=== PATIENT | female | born 1950 | race Caucasian/White ===

== ENCOUNTER 2024-12-17 16:29 | Emergency (ER) | payer MEDICARE, SELFPAY ==
[2024-12-17] VITALS (39 sets, daily range): BP systolic 136–236; BP diastolic 79–102; PULSE 99–113; RESP 20–38; O2SAT 93–98; BMI 22.8
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
--- NOTE | 2024-12-17 17:00 | EKG_ITS ---
[facility] [id number] [place] [id number] Test Date: 2024-12-17 Pat Name: Olivia Wright Department: Room: Gender: Female Pick Up Driver: : 1950 Requested By: Order Number: [id number] Reading MD: Thomas Cleaning MD Measurements Intervals [place] Rate: 105 P: 78 MI: 150 QRS: 76 QRSD: 74 T: -16 QT: 334 QTc: 441 Interpretive Statements Sinus tachycardia Septal infarct , age undetermined ST & T wave abnormality, consider inferior ischemia NO SIGNIFICANT CHANGE FROM PRIOR TRACING Electronically Signed On 12-18-2024 7:46:22 PDT by Thomas Cleaning MD
--- NOTE | 2024-12-17 17:07 | PC.NURSE ---
This DIRECTOR OF REHABILITATIVE SERVICES performed kayley care and placed a purewick at 1650.
[2024-12-17] MEDS: ALBUTEROL 2.5 MG/3 ML NEB (ADULT) INH (17:10)
[2024-12-17] MEDS: BACITRACIN OINT 0.9 GM PCKT 1 APPLIC TOP (18:56)
[2024-12-17] MEDS: LACTATED RINGERS 1,000 ML 1000 ML IV (18:56)
[2024-12-17 19:29] LABS: Add Manual Diff / Slide Review NO; Hematocrit 38.9 % (36-46); Hemoglobin 13.2 g/dL (12.0-16.0); Lymphocytes Absolute Auto 1100 /uL (1100-4500); Mean Corpuscular HGB Conc 33.9 % (30-36); Mean Corpuscular Hemoglobin 29.8 PG (26-34); Mean Corpuscular Volume 88.1 fL (80-100); Platelet Count 75 X10^3/uL (150-400)
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
[2024-12-17 19:35] LABS: Alanine Aminotransferase 17 IU/L (<35); Albumin 4.5 g/dL (3.5-5.0); Albumin Globulin Ratio 1.0 (1.0-2.8); Alkaline Phosphatase 125 U/L (38-126); Blood Urea Nitrogen 33 mg/dL (7-17); Calcium 9.6 mg/dL (8.4-10.2); Carbon Dioxide 29 mmol/L (22-32); Chloride 99 mmol/L (98-107); Creatine Kinase 40 U/L (30-135); Estimated Glomerular Filt Rate 54 mL/min (>60); Globulin 4.4 g/dL (1.7-4.1); Glucose 275 mg/dL (70-99); HEMOLYSIS < 15 (0-50); Potassium 4.9 mmol/L (3.4-5.1); Sodium 139 mmol/L (137-145); Total Protein 8.9 g/dL (6.3-8.2)
[2024-12-17 19:47] LABS: Troponin I 0.013 ng/mL (0.01-0.034)
[2024-12-17] MEDS: ALBUTEROL HFA PREPACK 1 BOX MISC (20:17)
[2024-12-17] MEDS: ACETAMINOPHEN 325 MG TABLET 650 MG PO (23:11)
[2024-12-18] VITALS (29 sets, daily range): BP systolic 110–210; BP diastolic 53–117; PULSE 68–95; RESP 14–29; O2SAT 92–100
[2024-12-18] MEDS: TET,DIPH,PERTUSS(ACELL),VAC/PF 0.5 ML SYRINGE IM (01:14)
--- NOTE | 2024-12-18 08:54 | PC.NURSE ---
Called RT to request an update on setting up patient home oxygen.
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
[2024-12-18] MEDS: BACITRACIN OINT 0.9 GM PCKT 1 APPLIC TOP (11:47)
== END 2024-12-18 12:05 | disposition home or self-care (01) ==
PROVIDERS: Emergency Medicine; Emergency Provider Emergency Medicine
DX: T21.23XA Burn of second degree of upper back, initial encounter (principal); T22.212A Burn of second degree of left forearm, initial encounter; T22.211A Burn of second degree of right forearm, initial encounter; T31.0 Burns involving less than 10% of body surface; J44.9 Chronic obstructive pulmonary disease, unspecified; T59.811A Toxic effect of smoke, accidental (unintentional), initial encounter; X00.0XXA Exposure to flames in uncontrolled fire in building or structure, initial encounter; Z23 Encounter for immunization; Z99.81 Dependence on supplemental oxygen; Z87.891 Personal history of nicotine dependence
CPT/HCPCS: 71045; 80053; 82550; 84484; 85025; 90471; 93005; 93010; 94640; 96360; 96361; 99285; 90715; J7613

== ENCOUNTER 2025-04-11 22:42 | Inpatient (IN) | payer MEDICARE, SELFPAY ==
[2025-04-11 22:46] VITALS: BP 82/49; PULSE 104; RESP 24; TEMP 36.2; O2SAT 95; BMI 20.9
[2025-04-11 22:59] VITALS: PULSE 103; RESP 22
[2025-04-11 23:00] VITALS: PULSE 119; RESP 21; O2SAT 99
[2025-04-11 23:01] VITALS: BP 103/59; PULSE 119; RESP 20; O2SAT 99
--- NOTE | 2025-04-11 23:09 | EKG_ITS ---
[facility] [address] [place] [address] Test Date: 2025-04-11 Pat Name: Olivia Wright Department: [facility] Room: Gender: Female Answering Service Operator: : 1950 Requested By: Order Number: [id number] Reading MD: Thomas Cleaning MD Measurements Intervals [place] Rate: 101 P: 78 CA: 142 QRS: 78 QRSD: 90 T: -63 QT: 346 QTc: 448 Interpretive Statements Sinus tachycardia Septal infarct , age undetermined Marked ST abnormality, possible inferior subendocardial injury Electronically Signed On 04-21-2025 9:01:03 PST by Thomas Cleaning MD
[2025-04-11 23:18] LABS: Add Manual Diff / Slide Review NO; Hematocrit 36.0 % (36-46); Hemoglobin 12.3 g/dL (12.0-16.0); Lymphocytes Absolute Auto 600 /uL (1100-4500); Mean Corpuscular HGB Conc 34.1 % (30-36); Mean Corpuscular Hemoglobin 29.6 PG (26-34); Mean Corpuscular Volume 86.8 fL (80-100); Platelet Count 129 X10^3/uL (150-400)
--- NOTE | 2025-04-11 23:28 | ED.NAVMDI ---
HPI - Nausea/Vomiting/Diarrhea General Chief complaint: Nausea/Vomiting/Diarrhea Stated complaint: weakness/ Lt arm pain Time Seen by Provider: 04/11/25 23:05 Source: patient and family Mode of arrival: Wheelchair History of Present Illness HPI Narrative: 74-year-old female with a history of COPD and diabetes comes in with confusion and more diarrhea that started this afternoon. Currently the patient is back at her baseline but comes in hypotensive and tachycardic. She is weaker than usual as well. She does not complain of any chest pain but does have some left upper extremity arm pain and suprapubic pain. Related Data Home Medications ?Medication ?Instructions ?Recorded ?Confirmed cholecalciferol (vitamin D3) 50 50 mcg PO QDAY ##0 07/08/17 12/17/24 mcg (2,000 unit) capsule (Vitamin D3) lisinopril 20 mg tablet 20 mg PO QDAY ##0 07/08/17 12/17/24 albuterol sulfate 90 mcg/actuation 1 puff inhalation Q4HP PRN 12/17/24 12/17/24 aerosol inhaler (Ventolin HFA) shortness of breath or wheezing fluticasone 250 mcg-salmeterol 50 1 ea inhalation BID 12/17/24 12/17/24 mcg/dose blistr powdr for inhalation garlic 1,000 mg capsule 1,000 mg PO DAILY 12/17/24 12/17/24 montelukast 10 mg tablet 10 mg PO ONCE PM 12/17/24 12/17/24 Previous Rx's ?Medication ?Instructions ?Recorded albuterol sulfate 2.5 mg/3 mL 2.5 mg (3 mL) inhalation Q4-6H PRN 12/18/24 (0.083 %) solution for nebulization shortness of breath or wheezing #75 mL albuterol sulfate 90 mcg/actuation 2 inh inhalation Q4-6H PRN 12/18/24 breath activated powder shortness of breath or wheezing #1 inhaler,sensor (Proair Digihaler) ea bacitracin 500 unit/gram topical 1 applic topical TID #30 grams 12/18/24 ointment lisinopril 20 mg tablet 20 mg PO DAILY #30 tabs 12/18/24 montelukast 10 mg tablet 10 mg PO QPM #30 tabs 12/18/24 nebulizer accessories #2 ea 12/18/24 nebulizer and compressor #1 ea 12/18/24 Allergies Allergy/AdvReac Type Severity Reaction Status Date / Time No Known Allergies Allergy Uncoded 04/11/25 22:46 Review of Systems Review of Systems ROS Unobtainable: All systems reviewed & are unremarkable except as noted in HPI and below Patient History Social History household members: spouse Smoking Status: Former smoker Smoking Status: Former smoker Exam Narrative Exam Narrative: General: Patient appears to be in no acute distress, acting appropriately Head: normocephalic, atraumatic, HEENT: Pupils equal round reactive, eyes tracking well, neck supple, no JVD Heart: regular rate and rhythm, no murmurs, rubs, or gallops heard Lungs: clear to auscultation, no adventitious sounds Abdomen: soft , suprapubic area mildly tender to palpation, nondistended, positive bowel sounds Neurological: no focal neurological signs, moving all extremities well, alert and oriented x3, Psych: good judgment ,good insight, mood is normal. Initial Vital Signs Initial Vital Signs: Vital Signs Temperature 97.1 F L 04/11/25 22:46 Pulse Rate 104 H 04/11/25 22:46 Respiratory Rate 24 04/11/25 22:46 Blood Pressure 82/49 L 04/11/25 22:46 Pulse Oximetry 95 04/11/25 22:46 Oxygen Delivery Method Nasal Cannula 04/11/25 22:46 Oxygen Flow Rate 3 04/11/25 22:46 Course Orders Ordered: ED Orders 04/11/25 22:52 EKG-12 Lead Stat 04/11/25 23:05 Complete Blood Count AUTO DIFF Stat Comprehensive Metabolic Panel Stat Lactate (Lactic Acid) Stat Lipase Stat Troponin I Stat 04/11/25 23:34 Blood Culture Stat 04/11/25 23:36 CT chest abd pel wo con Stat 04/11/25 23:38 CT head/brain wo con Stat Acetaminophen (Acetaminophen 325 Mg Tablet) 650 mg PO Q6H PRN PRN Reason: Fever/Mild Pain (1-3) Albuterol (Albuterol 2.5 Mg/3 Ml Neb (Adult)) 2.5 mg INH [id number] PRN PRN Reason: Dyspnea Albuterol (Albuterol 2.5 Mg/3 Ml Neb (Adult)) 2.5 mg INH RTQ2HR PRN PRN Reason: Shortness Of Breath Or Wheezing Budesonide (Budesonide 0.5 Mg/2 Ml Neb) 0.5 mg INH RTBID MERA Hydralazine HCl (Hydralazine 20 Mg/Ml Vial) 10 mg IV Q6HR PRN PRN Reason: SBP>= 160 or DBP >=110 Sodium Chloride (Normal Saline 0.9%) 1,000 mls @ 100 mls/hr IV CONT EMRA Last Admin: 04/12/25 03:49 Dose: 100 mls/hr Documented By: FM Piperacillin Sod/Tazobactam (Sod 3.375 gm/ Sodium Chloride) 100 mls @ 25 mls/hr IV Q12H MERA Vancomycin HCl 500 mg/ Sodium (Chloride) 100 mls @ 100 mls/hr IV Q48H MERA Insulin Human Lispro (Insulin Lispro 100 Unit/Ml 3ml Vial) 0 unit SUBCUT ACHS MERA; Protocol Melatonin (Melatonin 3 Mg Tablet) 9 mg PO BEDTIME PRN PRN Reason: insomnia Montelukast Sodium (Montelukast 10 Mg Tablet) 10 mg PO BEDTIME MERA Naloxone HCl (Naloxone 0.4 Mg/Ml Vial) 0.2 mg IV Q2MIN PRN PRN Reason: Opiate Reversal Ondansetron HCl (Ondansetron 4 Mg/2 Ml Inj) 4 mg IV NOW PRN PRN Reason: Nausea And Vomiting Ondansetron HCl (Ondansetron 4 Mg Odt) 4 mg PO NOW PRN PRN Reason: Nausea And Vomiting Ondansetron HCl (Ondansetron 4 Mg/2 Ml Inj) 4 mg IV Q8HR PRN PRN Reason: Nausea And Vomiting Oxycodone HCl (Oxycodone Ir 5 Mg Tablet) 5 mg PO Q3H PRN PRN Reason: Pain, Moderate (4-6) Last Admin: 04/12/25 03:04 Dose: 5 mg Documented By: FM Vitamin D (Cholecalciferol (Vitamin D3) 1,000 Unit Tablet) 1,000 unit PO DAILY [facility] Discontinued Medications Albuterol (Albuterol Hfa Mdi 60 Puff/8 Gm Inhaler (Covid Only)) 1 puff INH Q4HP PRN PRN Reason: Shortness Of Breath Or Wheezing Albuterol (Albuterol 2.5 Mg/3 Ml Neb (Adult)) 2.5 mg INH RTQ4HR PRN PRN Reason: Shortness Of Breath Or Wheezing Sodium Chloride (Normal Saline 0.9%) 1,000 mls @ 1,000 mls/hr IV BOLUS ONE Stop: 04/12/25 00:31 Last Admin: 04/12/25 01:13 Dose: 1,000 mls/hr Documented By: XOCHILT Vancomycin HCl 500 mg/ Sodium (Chloride) 100 mls @ 100 mls/hr IV NOW ONE Stop: 04/11/25 23:34 Last Admin: 04/12/25 02:00 Dose: Not Given Documented By: XOCHILT Piperacillin Sod/Tazobactam (Sod 4.5 gm/ Sodium Chloride) 100 mls @ 200 mls/hr IV NOW ONE Stop: 04/11/25 23:35 Last Admin: 04/12/25 02:00 Dose: Not Given Documented By: XOCHILT Vancomycin HCl 1,000 mg/ (Sodium Chloride) 100 mls @ 100 mls/hr IV NOW ONE Stop: 04/11/25 23:57 Last Admin: 04/12/25 01:50 Dose: 100 mls/hr Documented By: XOCHILT Piperacillin Sod/Tazobactam (Sod 3.375 gm/ Sodium Chloride) 100 mls @ 200 mls/hr IV NOW ONE Stop: 04/12/25 01:14 Last Infusion: 04/12/25 02:05 Dose: Infused Documented By: Admin: 04/12/25 00:50 Dose: 200 mls/hr Documented By: XOCHILT Vancomycin HCl 1,250 mg/ (Sodium Chloride) 100 mls @ 100 mls/hr IV Q12H [facility] Vancomycin HCl 500 mg/ Sodium (Chloride) 100 mls @ 100 mls/hr IV NOW ONE Stop: 04/12/25 01:21 Last Admin: 04/12/25 02:00 Dose: Not Given Documented By: XOCHILT Consultations Consultation #1: Consultation made with Dr. Jackson hospitalist who will graciously admit the patient as inpatient with telemetry. Vital Signs Vital signs: Vital Signs - 8 hr 04/11/25 22:46 04/11/25 22:59 04/11/25 23:00 Temperature 97.1 F L Pulse Rate 104 H 103 H 119 H Respiratory Rate 24 22 21 Blood Pressure 82/49 L Pulse Oximetry 95 99 Oxygen Delivery Method Nasal Cannula Oxygen Flow Rate 3 04/11/25 23:01 04/11/25 23:01 04/11/25 23:30 Temperature Pulse Rate 119 H 97 H Respiratory Rate 20 20 Blood Pressure 103/59 L Pulse Oximetry 99 90 L Oxygen Delivery Method Nasal Cannula Oxygen Flow Rate 3 04/12/25 00:00 04/12/25 00:25 04/12/25 00:25 Temperature Pulse Rate 92 H 93 H Respiratory Rate 19 18 Blood Pressure 116/56 L Pulse Oximetry 91 96 Oxygen Delivery Method Oxygen Flow Rate 04/12/25 00:30 04/12/25 00:30 04/12/25 00:39 Temperature Pulse Rate 91 H 91 H Respiratory Rate 17 17 Blood Pressure 98/49 L Pulse Oximetry 94 92 Oxygen Delivery Method Oxygen Flow Rate 04/12/25 00:39 04/12/25 01:00 Temperature Pulse Rate 93 H Respiratory Rate 21 Blood Pressure 98/50 L Pulse Oximetry 94 Oxygen Delivery Method Oxygen Flow Rate MDM - Nausea/Vomiting/Diarrhea Lab Data 04/11/25 23:05 04/11/25 23:05 Labs: Lab Results 04/11/25 Range/Units 23:05 WBC 14.8 H (4.5-11.0) X10^3/uL RBC 4.14 (4.0-5.2) X10^6/uL Hgb 12.3 (12.0-16.0) g/dL Hct 36.0 (36-46) % MCV 86.8 (80-100) fL MCH 29.6 (26-34) PG MCHC 34.1 (30-36) % RDW 16.1 H (11.6-14.8) % Plt Count 129 L (150-400) X10^3/uL Neut % (Auto) 92.8 H (50-75) % Lymph % (Auto) 4.1 L (25-40) % [place] % (Auto) 2.9 L (3-14) % Eos % (Auto) 0.1 L (2-4) % Baso % (Auto) 0.1 (0-2) % Neut # (Auto) 75885 H (3398-0103) /uL Lymph # (Auto) 600 L (8547-6797) /uL [place] # (Auto) 400 (0-900) /uL Eos # (Auto) 0 (0-450) /uL Baso # (Auto) 0 (0-100) /uL Sodium 137 (137-145) mmol/L Potassium 4.1 (3.4-5.1) mmol/L Chloride 98 (98-107) mmol/L Carbon Dioxide 21 L (22-32) mmol/L BUN 97 H (7-17) mg/dL Creatinine 2.28 H (0.52-1.04) mg/dL Estimated GFR 22 L (>60) mL/min BUN/Creatinine Ratio 42.5 H (6-22) Glucose 266 H (70-99) mg/dL Hemoglobin A1c 6.4 H (4.0-6.0) % Lactate 3.9 H (0.7-2.1) mmol/L Calcium 9.7 (8.4-10.2) mg/dL Total Bilirubin 0.5 (0.2-1.3) mg/dL AST 24 (14-36) IU/L ALT 21 (<35) IU/L Alkaline Phosphatase 89 (38-126) U/L Troponin I 0.019 (0.01-0.034) ng/mL Total Protein 8.5 H (6.3-8.2) g/dL Albumin 4.4 (3.5-5.0) g/dL Globulin 4.1 (1.7-4.1) g/dL Albumin/Globulin Ratio 1.1 (1.0-2.8) Lipase 48 (23-300) U/L Imaging Data ct chest/abd/pelvis: Radiologist's Impression: No acute traumatic findings. Solid pulmonary nodule in the left upper lung measuring 7 mm. Six- 12 month follow-up CT examination recommended. CT scan - head: Radiologist's Impression: No acute intracranial pathology ECG Data Interpretation: EKG shows normal axis, sinus tachycardia, septal infarct age undetermined some ST abnormality, 101 beats per minute, no significant change from prior EKG that showed sinus tachycardia in the septal infarct and STT wave abnormalities as well. MDM Narrative Medical decision making narrative: 74-year-old female with history of COPD and diabetes comes in with more confusion and found to be in a septic state. Sepsis protocol initiated. Patient given normal saline bolus and started on vancomycin and Zosyn. Most likely etiology of infectious source is urine but urine has not been provided at this time quite yet. Patient will be admitted for sepsis. Discharge Plan Departure Patient Disposition: Admitted As Inpatient Clinical Impression: Sepsis Qualifiers: Sepsis type: sepsis due to unspecified organism Sepsis acute organ dysfunction status: unspecified Qualified Code(s): A41.9 - Sepsis, unspecified organism Admit Date/Time: 04/12/25 01:11 Admit Provider: Dandy Jackson
[2025-04-11 23:30] VITALS: PULSE 97; RESP 20; O2SAT 90
[2025-04-11 23:30] LABS: Alanine Aminotransferase 21 IU/L (<35); Albumin 4.4 g/dL (3.5-5.0); Albumin Globulin Ratio 1.1 (1.0-2.8); Alkaline Phosphatase 89 U/L (38-126); Blood Urea Nitrogen 97 mg/dL (7-17); Calcium 9.7 mg/dL (8.4-10.2); Carbon Dioxide 21 mmol/L (22-32); Chloride 98 mmol/L (98-107); Estimated Glomerular Filt Rate 22 mL/min (>60); Globulin 4.1 g/dL (1.7-4.1); Glucose 266 mg/dL (70-99); HEMOLYSIS < 15 (0-50); Lipase 48 U/L (23-300); Potassium 4.1 mmol/L (3.4-5.1); Sodium 137 mmol/L (137-145); Total Protein 8.5 g/dL (6.3-8.2)
--- NOTE | 2025-04-11 23:36 | DI.CT.S_ITS ---
P she has ROCEDURE: CT CHEST ABD PEL WO CON INDICATIONS: fall/pain TECHNIQUE: After the administration of oral contrast, 5 mm thick sections acquired from the lung apices to the symphysis pubis. 5 mm thick coronal and sagittal reformats acquired, with additional 7 mm coronal MIP reformats through the lungs. For radiation dose reduction, the following was used: automated exposure control, adjustment of mA and/or kV according to patient size. COMPARISON: None. FINDINGS: Image quality: Diagnostic. CHEST: Lower Neck: No enlarged lymph nodes. Thyroid: No thyroid nodules which require sonographic follow up, per consensus guidelines. Axillae: No enlarged lymph nodes. Chest Wall: Unremarkable. Bones: Unremarkable. Lungs and Pleura: No pneumothorax or pleural effusions. Severe centrilobular emphysematous changes. Spiculated nodule in the left upper lobe measuring 7 mm. Moderate respiratory motion. Heart: Heart size is normal. No pericardial effusion. Coronary calcifications. Thoracic Vessels: The aorta and pulmonary arteries demonstrate normal size. Mediastinum and Griselda: No enlarged lymph nodes. Esophagus: No wall thickening. No hiatal hernia. ABDOMEN: Liver: No solid mass. Gallbladder: Common bile duct measures 9 mm. Cholecystectomy. Biliary ducts: No biliary dilation. Pancreas: No ductal dilation. Spleen: Size is within normal limits. Adrenal Glands: No adrenal nodules. Kidneys and Ureters: No hydronephrosis. No solid mass. No complex renal cystic lesion which requires follow up. Nonobstructing nephrolithiasis bilaterally. Stomach and Bowel: Normal colonic caliber, without significant wall thickening. Appendix not identified. Diverticulosis. Peritoneum: No abnormal intraperitoneal fluid. No free air. Ventral Wall: No hernia. Abdominal Nodes: No retroperitoneal or mesenteric adenopathy by size criteria. Vessels: Aorta and inferior vena cava are normal in size. Severe atherosclerosis. PELVIS: Pelvic Organs: Unremarkable. Bladder: Unremarkable. Pelvic Nodes: No enlarged lymph nodes. Miscellaneous: No inguinal hernias are seen. Bones: No aggressive osseous abnormality. Osseous demineralization. Bilateral rotator cuff calcific tendinopathy. No acute fracture. Multilevel degenerative changes of the spine. IMPRESSION: No acute traumatic findings. Solid pulmonary nodule in the left upper lung measuring 7 mm. 6-12 month follow-up CT examination recommended. Dictated by: Shun Wheatley M.D. on 04/12/2025 at 0:39 Approved by: Shun Wheatley M.D. on 04/12/2025 at 0:48
--- NOTE | 2025-04-11 23:38 | DI.CT.S_ITS ---
PROCEDURE: CT HEAD/BRAIN WO CON INDICATIONS: fall TECHNIQUE: Noncontrast 4.5 mm thick angled axial sections acquired from the foramen magnum to the vertex, with coronal and sagittal reformats. For radiation dose reduction, the following was used: automated exposure control, adjustment of mA and/or kV according to patient size. COMPARISON: [facility], CT, CT HEAD WITHOUT CONTRAST, 03/08/2025, 20:57. FINDINGS: Image quality: Diagnostic. CSF spaces: Basal cisterns are patent. No extra-axial fluid collections. Ventricles are normal in size and shape. Brain: No midline shift. No intracranial mass effect or hemorrhage. Diffuse cerebral volume loss. Patchy areas of white matter hypoattenuation often associated with small vessel ischemic disease, unchanged. Intracranial atherosclerotic calcification. 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 Skull and face: Calvarium and visualized facial bones are intact, without suspicious lesions. Sinuses: Visualized sinuses and mastoids are clear. IMPRESSION: No acute intracranial pathology. Chronic findings as above. Dictated by: Suhn Wheatley M.D. on 04/12/2025 at 0:34 Approved by: Shun Wheatley M.D. on 04/12/2025 at 0:38
[2025-04-11 23:41] LABS: Troponin I 0.019 ng/mL (0.01-0.034)
[2025-04-12] VITALS (22 sets, daily range): BP systolic 92–163; BP diastolic 49–82; PULSE 76–93; RESP 12–47; TEMP 35.8; O2SAT 91–100; BMI 20.9
[2025-04-12] LABS: Lactate (Lactic Acid) 3.9 mmol/L (0.7-2.1)
[2025-04-12] MEDS: PIPERACILLIN/TAZO 3.375 GM in SODIUM CHLORIDE 0.9% 100 ML IV ×2 (00:50→09:43)
[2025-04-12] MEDS: SODIUM CHLORIDE 0.9% 1,000 ML 1000 ML IV ×2 (01:13→09:42)
[2025-04-12 01:18] LABS: Reflexed Lactate in 2 Hours Y
[2025-04-12] MEDS: VANCOMYCIN 1,000 MG in SODIUM CHLORIDE 0.9% 100 ML 100 MG IV (01:50)
[2025-04-12 02:19] LABS: Lactate 2HR (Lactic Acid Rflx) 3.6 mmol/L (0.7-2.1)
--- NOTE | 2025-04-12 02:31 | PC.NURSE ---
Report given to CHARO Hodge
[2025-04-12] MEDS: SODIUM CHLORIDE 0.9% 1,000 ML 100 ML IV (03:49)
--- NOTE | 2025-04-12 04:17 | PM.HP.1 ---
History of Present Illness History of Present Illness Chief complaint: weakness/ Lt arm pain Narrative: Patient 74 years old female with history of COPD on 2 L of home oxygen, diabetes mellitus type 2, hypertension presented to the ER with confusion and diarrhea started this afternoon. She had multiple loose stools and feeling very weak. Denies any fever, shortness of breath, cough, chest pain, palpitations, nausea, vomiting, abdominal pain or dysuria. Laboratory shows WBC 14.8, H&H 12.3/36, platelets 129, sodium 137, potassium 4.1, creatinine 2.28, glucose 266, lactate 3.9, calcium 9.7, troponin 0.0 19, lipase 48, MRSA nasal screen pending and UA pending. CT of the head was unremarkable. Abdominal and chest CT shows no acute findings. In the ER she was given Zosyn 4.5 g IV, vancomycin 2 g IV, Zofran and fluid bolus. PFSH Social History household members: spouse Smoking Status: Former smoker Meds Home Medications and Allergies Home Medications ?Medication ?Instructions ?Recorded ?Confirmed ?Type cholecalciferol (vitamin D3) 50 50 mcg PO QDAY ##0 07/08/17 12/17/24 History mcg (2,000 unit) capsule (Vitamin D3) lisinopril 20 mg tablet 20 mg PO QDAY ##0 07/08/17 12/17/24 History albuterol sulfate 90 mcg/actuation 1 puff inhalation Q4HP PRN 12/17/24 12/17/24 History aerosol inhaler (Ventolin HFA) shortness of breath or wheezing fluticasone 250 mcg-salmeterol 50 1 ea inhalation BID 12/17/24 12/17/24 History mcg/dose blistr powdr for inhalation garlic 1,000 mg capsule 1,000 mg PO DAILY 12/17/24 12/17/24 History montelukast 10 mg tablet 10 mg PO ONCE PM 12/17/24 12/17/24 History albuterol sulfate 2.5 mg/3 mL 2.5 mg (3 mL) inhalation Q4-6H PRN 12/18/24 Rx (0.083 %) solution for nebulization shortness of breath or wheezing #75 mL albuterol sulfate 90 mcg/actuation 2 inh inhalation Q4-6H PRN 12/18/24 Rx breath activated powder shortness of breath or wheezing #1 inhaler,sensor (Proair Digihaler) ea bacitracin 500 unit/gram topical 1 applic topical TID #30 grams 12/18/24 Rx ointment lisinopril 20 mg tablet 20 mg PO DAILY #30 tabs 12/18/24 Rx montelukast 10 mg tablet 10 mg PO QPM #30 tabs 12/18/24 Rx nebulizer accessories #2 ea 12/18/24 Rx nebulizer and compressor #1 ea 12/18/24 Rx Allergies Allergy/AdvReac Type Severity Reaction Status Date / Time No Known Allergies Allergy Uncoded 04/11/25 22:46 Review of Systems Review of Systems ROS: Yes All systems reviewed with the patient and are negative except as otherwise documented Constitutional Constitutional: Reports as per HPI and Reports system reviewed and no additional complaints, except as documented Eyes Eyes: Reports as per HPI and Reports system reviewed and no additional complaints, except as documented ENT Ears, Nose, Mouth, and Throat: Yes as per HPI and Yes system reviewed and no additional complaints, except as documented Cardiovascular Cardiovascular: Reports system reviewed and no additional complaints, except as documented Respiratory Respiratory: Reports system reviewed and no additional complaints, except as documented Gastrointestinal Gastrointestinal: Reports system reviewed and no additional complaints, except as documented Genitourinary Genitourinary: Reports system reviewed and no additional complaints, except as documented Musculoskeletal Musculoskeletal: Reports system reviewed and no additional complaints, except as documented, Reports abnormal gait and Reports numbness Neurologic Neurologic: Reports system reviewed and no additional complaints, except as documented, Reports abnormal gait, Reports confusion and Reports numbness Psychiatric Psychiatric: Reports system reviewed and no additional complaints, except as documented and Reports confusion Exam Vital Signs (past 8 hours): - 04/11/25 22:46 04/11/25 22:59 04/11/25 23:00 Temperature 97.1 F L Pulse Rate 104 H 103 H 119 H Respiratory Rate 24 22 21 Blood Pressure 82/49 L Pulse Oximetry 95 99 Oxygen Delivery Method Nasal Cannula Oxygen Flow Rate 3 04/11/25 23:01 04/11/25 23:01 04/11/25 23:30 Temperature Pulse Rate 119 H 97 H Respiratory Rate 20 20 Blood Pressure 103/59 L Pulse Oximetry 99 90 L Oxygen Delivery Method Nasal Cannula Oxygen Flow Rate 3 04/12/25 00:00 04/12/25 00:25 04/12/25 00:25 Temperature Pulse Rate 92 H 93 H Respiratory Rate 19 18 Blood Pressure 116/56 L Pulse Oximetry 91 96 Oxygen Delivery Method Oxygen Flow Rate 04/12/25 00:30 04/12/25 00:30 04/12/25 00:39 Temperature Pulse Rate 91 H 91 H Respiratory Rate 17 17 Blood Pressure 98/49 L Pulse Oximetry 94 92 Oxygen Delivery Method Oxygen Flow Rate 04/12/25 00:39 04/12/25 01:00 04/12/25 01:20 Temperature Pulse Rate 93 H 91 H Respiratory Rate 21 19 Blood Pressure 98/50 L Pulse Oximetry 94 96 Oxygen Delivery Method Oxygen Flow Rate 04/12/25 01:20 04/12/25 01:30 04/12/25 01:30 Temperature Pulse Rate 87 Respiratory Rate 17 Blood Pressure 92/57 L 105/52 L Pulse Oximetry 98 Oxygen Delivery Method Oxygen Flow Rate 04/12/25 02:00 04/12/25 02:00 Temperature Pulse Rate 89 Respiratory Rate 17 Blood Pressure 116/56 L Pulse Oximetry 95 Oxygen Delivery Method Oxygen Flow Rate Oxygen Delivery Method Nasal Cannula Oxygen Flow Rate 3 Const General: cooperative, comfortable and well developed Orientation: alert and oriented x3 HENNE Head: normal to inspection, normocephalic and atraumatic Face and sinus: normal facial exam Mouth: oral mucosae normal and moist mucous membranes Throat: posterior oropharynx normal Eyes General: appearance normal, both eyes and all related structures Pupils: PERRL EOM: EOM intact bilaterally Neck Neck: normal visual inspection and full ROM Chest Chest: normal inspection of the chest Resp Effort & Inspection: normal respiratory effort and able to speak in complete sentences Auscultation: clear to auscultation bilaterally Cardio Palpation: normal PMI Rate: regular rate Rhythm: regular rhythm Heart Sounds: S1 normal and S2 normal GI Inspection: normal to inspection Palpation: soft and no hepatosplenomegaly Auscultation: normal bowel sounds Skin General: no rashes or lesions noted Lesions: no lesions Rashes: no rashes Trauma: no lacerations or abrasions Neuro General: patient alert, patient awake, patient oriented x3 and no focal motor deficits Cranial Nerves: CN's II-XI intact bilaterally Cognition: normal cognition Speech: speech normal Gait: normal gait Motor: muscle tone normal throughout Sensory Exam: no sensory deficits noted Extrem General: full ROM and no calf tenderness Psych Appearance: grossly normal Mental Status: mental status grossly normal Speech and Movement: speech and movement normal Objective Labs 04/11/25 23:05 04/11/25 23:05 Labs: Laboratory Results - last 24 hr 04/11/25 04/12/25 04/12/25 23:05 01:57 03:30 WBC 14.8 H RBC 4.14 Hgb 12.3 Hct 36.0 MCV 86.8 MCH 29.6 MCHC 34.1 RDW 16.1 H Plt Count 129 L Neut % (Auto) 92.8 H Lymph % (Auto) 4.1 L [place] % (Auto) 2.9 L Eos % (Auto) 0.1 L Baso % (Auto) 0.1 Neut # (Auto) 87299 H Lymph # (Auto) 600 L [place] # (Auto) 400 Eos # (Auto) 0 Baso # (Auto) 0 Sodium 137 Potassium 4.1 Chloride 98 Carbon Dioxide 21 L BUN 97 H Creatinine 2.28 H Estimated GFR 22 L BUN/Creatinine Ratio 42.5 H Glucose 266 H POC Whole Bld Glucose 209 H Lactate 3.9 H 3.6 H Calcium 9.7 Total Bilirubin 0.5 AST 24 ALT 21 Alkaline Phosphatase 89 Troponin I 0.019 Total Protein 8.5 H Albumin 4.4 Globulin 4.1 Albumin/Globulin Ratio 1.1 Lipase 48 Assessment & Plan Assessment & Plan narrative: Severe sepsis from unclear etiology. - Admit to PCU on telemetry - IV fluids - Continue Zosyn and vancomycin started in the ED - Check procalcitonin, UA - Repeat lactic acid - Follow-up on the blood cultures and urine cultures Acute kidney injury on CKD stage III. Presented with creatinine 2.28, baseline between 1.4?1.7. Most likely pre-renal. -continue with IV fluid hydration. -hold ACEI -monitor UOP. -daily BMP -Avoid any nephrotoxic agents, including NSAIDs -Dose all medications according pt's current eGFR Mild diarrhea. Check for C. difficile infection and if negative Imodium as needed. Diabetes mellitus, type II without long-term current use of insulin, uncontrolled with hyperglycemia, -check HbA1c. -Continue to monitor blood sugar. -Continue diabetic diet with sliding scale insulins with NovoLog sliding scale. -hypoglycemia protocol as needed COPD. Stable. Restart Pulmicort and Singulair. Albuterol as needed. Hypertension. Hydralazine as needed Time-Based Coding :: [TOTAL MINUTES] spent with patient and on the chart (including review of chart, obtaining history, exam, reviewing outside data, placing orders, documenting exam and treatment plan, and counseling patient) on [DATE]. Quality VTE Deep Vein Thrombosis/Pulmonary Embolism Present on Admission: No MIPS - Admit I confirm the patient?s Advance Care Plan is present, Code status is documented, Surrogate decision maker is in patient?s record [If Yes, STOP here]: Yes MIPS - Meds 'Current medications' to include all prescriptions, [id number] products, herbals, cannabis/cannabidiol products, and vitamin/mineral/dietary (nutritional) supplements. I have utilized all available resources to obtain, update, or review the patient?s current medications. [If Yes, STOP here]: Yes
[2025-04-12 04:18] LABS: Hemoglobin A1C% w Est Avg Glu 6.4 % (4.0-6.0)
[2025-04-12 04:34] LABS: MRSA (Nasal) PCR NOT DETECTED (Not Detect)
[2025-04-12 05:11] LABS: Thyroid Stimulating Hormone 1.99 uIU/mL (0.47-4.68)
[2025-04-12 06:01] LABS: Alanine Aminotransferase 17 IU/L (<35); Albumin 3.9 g/dL (3.5-5.0); Albumin Globulin Ratio 1.1 (1.0-2.8); Alkaline Phosphatase 74 U/L (38-126); Blood Urea Nitrogen 98 mg/dL (7-17); Calcium 8.7 mg/dL (8.4-10.2); Carbon Dioxide 21 mmol/L (22-32); Chloride 102 mmol/L (98-107); Estimated Glomerular Filt Rate 22 mL/min (>60); Globulin 3.7 g/dL (1.7-4.1); Glucose 188 mg/dL (70-99); HEMOLYSIS < 15 (0-50); Magnesium 1.7 mg/dL (1.6-2.3); Potassium 4.1 mmol/L (3.4-5.1); Sodium 137 mmol/L (137-145); Total Protein 7.6 g/dL (6.3-8.2)
[2025-04-12 06:17] LABS: Procalcitonin 0.537 ng/mL (<0.5)
[2025-04-12 06:19] LABS: Cholesterol 138 mg/dL (140-199); HDL Cholesterol 39 mg/dL (40-60); Triglycerides 134 mg/dL (35-150)
[2025-04-12] MEDS: ALBUTEROL 2.5 MG/3 ML NEB (ADULT) INH (07:56)
[2025-04-12] MEDS: BUDESONIDE 0.5 MG/2 ML NEB INH (08:04)
[2025-04-12 08:07] LABS: Lactate (Lactic Acid) 1.7 mmol/L (0.7-2.1)
[2025-04-12 09:08] LABS: Creatine Kinase < 20 U/L (30-135)
--- NOTE | 2025-04-12 10:59 | P.HP_ITS ---
History of Present Illness History of Present Illness Date Patient Seen: 04/12/25 Chief complaint: weakness/ Lt arm pain Narrative: Chief complaint: Fall with sepsis oliguric acute renal failure aspiration profound toxic encephalopathy History of present illness: 74 years old female with history of COPD on 2 L of home oxygen, diabetes mellitus type 2, hypertension presented to the ER with confusion and diarrhea started this afternoon. She had multiple loose stools and feeling very weak. Denies any fever, shortness of breath, cough, chest pain, palpitations, nausea, vomiting, abdominal pain or dysuria. Laboratory shows WBC 14.8, H&H 12.3/36, platelets 129, sodium 137, potassium 4.1, creatinine 2.28, glucose 266, lactate 3.9, calcium 9.7, troponin 0.0 19, lipase 48, MRSA nasal screen pending and UA pending. CT of the head was unremarkable. Abdominal and chest CT shows no acute findings. In the ER she was given Zosyn 4.5 g IV, vancomycin 2 g IV, Zofran and fluid bolus. Review of systems: Patient unable to participate not conscious enough Physical exam: Lethargic barely conscious patient but occasionally calling out in pain Heart sounds distant With rhonchi throughout chest Scant bowel sounds abdomen Pertinent objective findings: White blood cell count 14.8 93% neutrophils, hemoglobin 12.3 platelets 129 BUN 98 creatinine 2.3 lactic acid 3.7 Assessment and plan: Severe sepsis with oliguric renal failure toxic encephalopathy hypotension * Discussed with family members son and [id number] guarded prognosis for this patient is for acute treatment requiring major medical facility with capacity for dialysis * After consideration family elected comfort measures and do not resuscitate Code status: * Do not resuscitate Disposition: * Hospitalization with comfort measures Time based billing: * 55 minutes were patient [id number] physical examination discussion with treatment team family review of objective findings [facility] Social History household members: spouse Smoking Status: Former smoker Meds Home Medications and Allergies Home Medications ?Medication ?Instructions ?Recorded ?Confirmed ?Type cholecalciferol (vitamin D3) 50 50 mcg PO QDAY ##0 12/17/24 History mcg (2,000 unit) capsule (Vitamin D3) lisinopril 20 mg tablet 20 mg PO QDAY ##0 07/08/17 0 12/17/24 History albuterol sulfate 90 mcg/actuation 1 puff inhalation Q 4HP PRN 12/17/24 12/17/24 History aerosol inhaler (Ventolin HFA) shortness of breath or wheezing fluticasone 250 mcg-salmeterol 50 1 ea inhalation BID 12/17/24 12/17/24 History mcg/dose blistr powdr for inhalation garlic 1,000 mg capsule 1,000 mg PO DAILY 12/17/24 0 12/17/24 History montelukast 10 mg tablet 10 mg PO ONCE PM 12/17/24 History albuterol sulfate 2.5 mg/3 mL 2.5 mg (3 mL) inhalation Q4-6H PRN 12/18/24 Rx (0.083 %) solution for nebulization shortness of breat h or wheezing #75 mL albuterol sulfate 90 mcg/actuation 2 inh inhalation Q4 -6H PRN 12/18/24 Rx breath activated powder shortness of breath or wheez ing #1 inhaler,sensor (Proair Digihaler) ea bacitracin 500 unit/gram topical 1 applic topical TID #30 grams 12/18/24 Rx ointment lisinopril 20 mg tablet 20 mg PO DAILY #30 tabs 02/04 Rx montelukast 10 mg tablet 10 mg PO QPM #30 tabs Rx nebulizer accessories #2 ea 12/18/24 Rx nebulizer and compressor #1 ea 12/18/24 Rx Allergies Allergy/AdvReac Type Severity Reaction Status Date / Time No Known Allergies Allergy Uncoded 04/11/25 22:46 Exam Vital Signs (past 8 hours): - 04/12/25 07:00 04/12/25 07:40 04/12/25 07:57 Pulse Rate 86 88 Respiratory Rate 24 22 Blood Pressure Pulse Oximetry 96 93 Oxygen Delivery Method Room Air Nasal Cannula Room Air 04/12/25 08:00 04/12/25 08:06 04/12/25 08:30 Pulse Rate 90 89 85 Respiratory Rate 29 H 24 47 H Blood Pressure Pulse Oximetry 95 93 95 Oxygen Delivery Method Room Air 04/12/25 09:00 04/12/25 09:30 04/12/25 10:00 Pulse Rate 90 91 H 87 Respiratory Rate 25 H 31 H 40 H Blood Pressure Pulse Oximetry 95 93 94 Oxygen Delivery Method 04/12/25 10:03 04/12/25 10:03 04/12/25 10:31 Pulse Rate 92 H Respiratory Rate Blood Pressure 163/67 H Pulse Oximetry 95 Oxygen Delivery Method Nasal Cannula Oxygen Delivery Method Nasal Cannula Oxygen Flow Rate 3 Objective Labs 04/11/25 23:05 04/12/25 04:25 Labs: Laboratory Results - last 24 hr 04/11/25 04/12/25 04/12/25 23:05 01:57 03:00 WBC 14.8 H RBC 4.14 Hgb 12.3 Hct 36.0 MCV 86.8 MCH 29.6 MCHC 34.1 RDW 16.1 H Plt Count 129 L Neut % (Auto) 92.8 H Lymph % (Auto) 4.1 L [place] % (Auto) 2.9 L Eos % (Auto) 0.1 L Baso % (Auto) 0.1 Neut # (Auto) 81947 H Lymph # (Auto) 600 L [place] # (Auto) 400 Eos # (Auto) 0 Baso # (Auto) 0 Sodium 137 Potassium 4.1 Chloride 98 Carbon Dioxide 21 L BUN 97 H Creatinine 2.28 H Estimated GFR 22 L BUN/Creatinine Ratio 42.5 H Glucose 266 H POC Whole Bld Glucose Hemoglobin A1c 6.4 H Lactate 3.9 H 3.6 H Calcium 9.7 Magnesium Total Bilirubin 0.5 AST 24 ALT 21 Alkaline Phosphatase 89 Total Creatine Kinase Troponin I 0.019 Total Protein 8.5 H Albumin 4.4 Globulin 4.1 Albumin/Globulin Ratio 1.1 Triglycerides Cholesterol LDL Cholesterol, Calc HDL Cholesterol Lipase 48 Procalcitonin TSH 1.99 Nasal Screen MRSA (PCR) Not detected 04/12/25 04/12/25 04/12/25 03:30 04:25 07:30 WBC RBC Hgb Hct MCV MCH MCHC RDW Plt Count Neut % (Auto) Lymph % (Auto) [place] % (Auto) Eos % (Auto) Baso % (Auto) Neut # (Auto) Lymph # (Auto) [place] # (Auto) Eos # (Auto) Baso # (Auto) Sodium 137 Potassium 4.1 Chloride 102 Carbon Dioxide 21 L BUN 98 H Creatinine 2.30 H Estimated GFR 22 L BUN/Creatinine Ratio 42.6 H Glucose 188 H POC Whole Bld Glucose 209 H Hemoglobin A1c Lactate 1.7 Calcium 8.7 Magnesium 1.7 Total Bilirubin 0.5 AST 23 ALT 17 Alkaline Phosphatase 74 Total Creatine Kinase < 20 L Troponin I Total Protein 7.6 Albumin 3.9 Globulin 3.7 Albumin/Globulin Ratio 1.1 Triglycerides 134 Cholesterol 138 L LDL Cholesterol, Calc 72 HDL Cholesterol 39 L Lipase Procalcitonin 0.537 H TSH Nasal Screen MRSA (PCR) Assessment & Plan Time-Based Coding :: [TOTAL MINUTES] spent with patient and on the chart (including review of chart, obtaining history, exam, reviewing outside data, placing orders, documenting exam and treatment plan, and counseling patient) on [DATE]. Quality VTE Deep Vein Thrombosis/Pulmonary Embolism Present on Admission: No
--- NOTE | 2025-04-12 12:10 | PC.NURSE ---
Addendum entered by Elizabeth Dominguez RN 04/12/25 14:33: pt has no urine output, bladder scan shows 45 cc urine in bladder, family opting to hold off on the tan catheter, purewick in place and connect to suction, no further pt needs at this time, call light within reach, care ongoing Addendum entered by Elizabeth Dominguez RN 04/12/25 12:54: Family at bedside, pt continues to moan and squirm in pain, continuing to titrate Morphine gtt to provide comfort, care ongoing Original Note: Pt choked on a sip of water, suctioned pt and placed on 5L NC for O2 saturation of 72%, pt responded O2 increased to 92%, RT at bedside and was able to titrate pt to 2 LNC, per medical records pt has COPD and wears 2-3LNC at baseline. Dr Yoo at bedside, pt groaning and c/o pain, admin Oxycodone as ordered, pt still c/o 1mg Dilaudid administered, Dr Yoo to contact pt family to discuss goals of care. Dr Yoo states family is making pt DNR/DNI and is going to have conversation regarding comfort care and will call back with decision. Son Mayco called with Father on the line and stated that family wanted to withdraw care and to make pt comfort care at this time. Care ongoing
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
[2025-04-13 02:01] VITALS: PULSE 92; O2SAT 95
--- NOTE | 2025-04-13 07:00 | PC.NURSE ---
Environment Artist Note-Patient on Comfort Care, mostly unresponsive, does make few movements and bites down on mouth swabs. Morphine gtt at 6mg/hr. No UOP. Family at bedside intermittently.
--- NOTE | 2025-04-13 08:08 | P.PN_ITS ---
Subjective Subjective Date Patient Seen: 04/13/25 Interval history: Chief complaint: Fall with sepsis oliguric acute renal failure aspiration profound toxic encephalopathy History of present illness: 04/12: 74 years old female with history of COPD on 2 L of home oxygen, diabetes mellitus type 2, hypertension presented to the ER with confusion and diarrhea started this afternoon. She had multiple loose stools and feeling very weak. Denies any fever, shortness of breath, cough, chest pain, palpitations, nausea, vomiting, abdominal pain or dysuria. Laboratory shows WBC 14.8, H&H 12.3/36, platelets 129, sodium 137, potassium 4.1, creatinine 2.28, glucose 266, lactate 3.9, calcium 9.7, troponin 0.0 19, lipase 48, MRSA nasal screen pending and UA pending. CT of the head was unremarkable. Abdominal and chest CT shows no acute findings. In the ER she was given Zosyn 4.5 g IV, vancomycin 2 g IV, Zofran and fluid bolus. Hospital course: 04/13: Overnight patient remained on palliative morphine infusion Review of systems: Patient unable to participate not conscious enough Physical exam: Unresponsive premorbid Pertinent objective findings: White blood cell count 14.8 93% neutrophils, hemoglobin 12.3 platelets 129 BUN 98 creatinine 2.3 lactic acid 3.7 Assessment and plan: Severe sepsis with oliguric renal failure toxic encephalopathy hypotension * Discussed with family members son and [id number] guarded prognosis for this patient is for acute treatment requiring major medical facility with capacity for dialysis * After consideration family elected comfort measures and do not resuscitate * Morphine infusion for comfort * Withdrawal oxygen after family * Anticipate end of survival with in a short period of time after oxygen withdrawal Code status: * Do not resuscitate Disposition: * Hospitalization with comfort measures Time based billing: * 35 minutes were patient [id number] physical examination discussion with treatment team family review of objective findings [facility] Exam Vital Signs (past 8 hours): - 04/13/25 02:01 Pulse Rate 92 H Pulse Oximetry 95 Oxygen Delivery Method Nasal Cannula Oxygen Flow Rate 2 Objective Labs 04/11/25 23:05 04/12/25 04:25 Labs: Laboratory Results - last 24 hr 04/12/25 04:25 Total Creatine Kinase < 20 L PFS Social History household members: spouse Smoking Status: Former smoker Assessment & Plan Time-Based Coding :: [TOTAL MINUTES] spent with patient and on the chart (including review of chart, obtaining history, exam, reviewing outside data, placing orders, documenting exam and treatment plan, and counseling patient) on [DATE]. Quality VTE Deep Vein Thrombosis/Pulmonary Embolism Present on Admission: No
--- NOTE | 2025-04-13 11:09 | CM.DPNOTE ---
DCP note REGISTERED ACCOUNT ADMINISTRATOR reviewed EMR per chart review, CC likely imminent. per RN/provider, anticipates passing today vs Tuesday. family not at bedside, went home to rest briefly before returning. REGISTERED ACCOUNT ADMINISTRATOR will continue to follow as needed. pt likely to pass here soon. potential need for family/grief resources DANNIE Hussein
--- NOTE | 2025-04-14 00:33 | PC.NURSE ---
Patient at 0020. Dr. Kim and associate of science in nursing made aware. Family in room at time of . Family left bedside at this time.
--- NOTE | 2025-04-14 00:34 | PM.CALLCOV.1 ---
Call Coverage Note Note Narrative of Care Provided: Notified by RN at 11:34 PM PT 04/13/25 that patient, comfort care, has .
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
--- NOTE | 2025-04-14 14:02 | PM.DDS.1 ---
Discharge Summary History of Illness Narrative: Chief complaint: Fall with sepsis oliguric acute renal failure aspiration profound toxic encephalopathy History of present illness: 74 years old female with history of COPD on 2 L of home oxygen, diabetes mellitus type 2, hypertension presented to the ER with confusion and diarrhea started this afternoon. She had multiple loose stools and feeling very weak. Denies any fever, shortness of breath, cough, chest pain, palpitations, nausea, vomiting, abdominal pain or dysuria. Laboratory shows WBC 14.8, H&H 12.3/36, platelets 129, sodium 137, potassium 4.1, creatinine 2.28, glucose 266, lactate 3.9, calcium 9.7, troponin 0.0 19, lipase 48, MRSA nasal screen pending and UA pending. CT of the head was unremarkable. Abdominal and chest CT shows no acute findings. In the ER she was given Zosyn 4.5 g IV, vancomycin 2 g IV, Zofran and fluid bolus. Hospital Course Date of Admission: 04/12/25 01:11 Date of : 04/13/25 Consults: 04/12/25 10:01 Consult to Discharge Planning Routine Comment: 04/12/25 10:04 Consult to Hospice Referral Urgent Comment: Discharge Diagnosis: Sepsis aspiration pneumonia acute renal failure with ATN anuric Hospital Course: Patient was placed on comfort measures 04/12/25 and 11:34 p.m. on 04/13 Objective Labs 04/11/25 23:05 04/12/25 04:25
== END 2025-04-13 23:34 | disposition expired | DRG 871 ==
LOC: ED 23:05 → AC 04-12 01:12 → ICU 04-12 01:42
PROVIDERS: Internal Medicine; Admitting Provider Internal Medicine; Emergency Provider Family Medicine; Referring Provider Family Medicine; Visit Provider Internal Medicine
DX: A41.9 Sepsis, unspecified organism (principal); G92.9 Unspecified toxic encephalopathy; J69.0 Pneumonitis due to inhalation of food and vomit; N17.0 Acute kidney failure with tubular necrosis; J18.9 Pneumonia, unspecified organism; J44.0 Chronic obstructive pulmonary disease with (acute) lower respiratory infection; R65.20 Severe sepsis without septic shock; I12.9 Hypertensive chronic kidney disease with stage 1 through stage 4 chronic kidney disease, or unspecified chronic kidney disease; N18.30 Chronic kidney disease, stage 3 unspecified; R19.7 Diarrhea, unspecified; E11.22 Type 2 diabetes mellitus with diabetic chronic kidney disease; E11.65 Type 2 diabetes mellitus with hyperglycemia; Z99.81 Dependence on supplemental oxygen; Z66 Do not resuscitate; Z87.891 Personal history of nicotine dependence; Z51.5 Encounter for palliative care
CPT/HCPCS: 36415; 70450; 71250; 74176; 80053; 80061; 82550; 82962; 83036; 83605; 83690; 83735; 84145; 84443; 84484; 85025; 87040; 87797; 93005; 93010; 94640; 94760; 94762; 96365; 99285; J1171; J2060; J2270; J2543; J3374; J7030; J7050; J7613